=== PATIENT | female | born 1940 | race Caucasian/White ===

== ENCOUNTER → 2017-01-14 | Outpatient (CLI) | payer MEDICARE, BC ==
[~2017-01-14] MED LIST: ASPIRIN PO; AUGMENTIN PO; SYNTHROID PO; ZOLOFT PO
--- NOTE | ~2017-01-14 | MY11 ---
[facility] A Service of [facility] & [facility] RADIOLOGY TEXT RESULTS PATIENT: MARZENA RUIZ LOCATION: [facility] : 38 UNIT #: [id number] AGE: [address]: Vicenta Cullen MD SEX: F ORDER DR: [id number] [address] [address] [id number] O MR#: [id number] Acc #: [id number] NAME: MARZENA RUIZ : 1940 SEX: F STUDY DATE/TIME: 01/14/2017 11:07 UNIT: [facility] ROOM: STUDY DESCRIPTION: MY Mammogram Screening Dig Ravindra Attending Physician: Vicenta Cullen M.D. Referring Physician: Vicenta Cullen M.D. Ordering Physician: Vicenta Cullen M.D. Primary Care Physician: Lindsey Hay A.P.R.N. MEDICAL IMAGING REPORT This report is preliminary unless electronic signature is present. EXAM Digital screening mammogram, 01/14/2017, [facility]. HISTORY 76-year-old woman; strong family history, 2 sisters postmenopausal. Annual screening. COMPARISON Comparison mammograms date to 08/15/2006, with most recent screening comparison 01/12/2016. FINDINGS Digital imaging of each breast was completed utilizing screening protocol. Review includes FDA-approved CAD device. Breast parenchyma remains somewhat dense with a heterogeneous pattern. Subareolar duct prominence is again noted in each breast. There is a small focal area of stellate distortion projecting upper hemisphere right breast middle third and visible on the MLO projection only. I expect this is a summation artifact. However, additional right breast imaging is recommended. This would include a true lateral projection and high-resolution spot compression views. Exaggerated craniocaudal view should be performed, as well. Targeted ultrasound would be completed if indicated at the time. Benign parenchymal pattern in the left breast is stable. IMPRESSION Incomplete mammographic evaluation. Additional right breast imaging recommended. See complete report with recommendations. Patients over the age of 40 are entered into a reminder system with target due date for the next mammogram. A result letter will also be sent to the [facility] A Service of [facility] & [facility] RADIOLOGY TEXT RESULTS PATIENT: MARZENA RUIZ LOCATION: [facility] : 38 UNIT #: [id number] AGE: [address]: Vicenta Cullen MD SEX: F ORDER DR: patient. BIRADS: 0 Incomplete; need additional imaging evaluation and/or prior mammograms for comparison. STAT * RESULT Dictated by... Moises Juarez M.D. THIS IS AN ELECTRONICALLY VERIFIED REPORT Moises Juarez M.D. at 01/14/2017 12:45 PM Maria Esther TD: 01/14/2017 11:27 JOB #: [id number] MEDICAL IMAGING REPORT Page 1 of 1
== END | disposition home or self-care (01) ==
LOC: SMAM 10:17
DX: Z12.31 Encounter for screening mammogram for malignant neoplasm of breast (principal); Z80.3 Family history of malignant neoplasm of breast
CPT/HCPCS: G0202

== ENCOUNTER → 2017-01-24 | Outpatient (CLI) | payer MEDICARE, BC ==
--- NOTE | ~2017-01-24 | MY25 ---
[facility] A Service of [facility] RADIOLOGY TEXT RESULTS PATIENT: MARZENA RUIZ LOCATION: [facility] : 38 UNIT #: [id number] AGE: [address]: Vicenta Cullen MD SEX: F ORDER DR: [id number] [facility] [address] [place], [place] [address] [id number] O MR#: [id number] Acc #: [id number] NAME: MARZENA RUIZ : 1940 SEX: F STUDY DATE/TIME: 01/24/2017 12:38 UNIT: [facility] ROOM: STUDY DESCRIPTION: VIJAYA KARINA RANDOLPHTiffanie W/ CAD UNI RT Attending Physician: Vicenta Cullen M.D. Referring Physician: Vicenta Cullen M.D. Ordering Physician: Vicenta Cullen M.D. Primary Care Physician: Lindsey Hay A.P.R.N. MEDICAL IMAGING REPORT This report is preliminary unless electronic signature is present EXAM Right digital diagnostic mammogram INDICATIONS Asymmetry in the right breast on screening mammogram PROCEDURE True lateral view of the right breast. Spot compression view right breast MLO projection and rolled medial and lateral views in the CC projection. All images obtained on digital mammography unit. FDA approved CAD device utilized. COMPARISON 01/14/2017 FINDINGS Scattered fibroglandular density. Suspected asymmetry in the upper half of the right breast on the screening mammogram does not persist on spot compression. There is no persistent mass or suspicious calcification. IMPRESSION Negative right digital diagnostic mammogram. Recommend patient continue with yearly screening. Patients over the age of 40 are entered into a reminder system with target due date for the next mammogram. A result letter will also be sent to the patient. BIRADS: 1 - Negative Dictated by... Sinan Jose M.D. [facility] A Service [facility] RADIOLOGY TEXT RESULTS PATIENT: MARZENA RUIZ LOCATION: [facility] : 38 UNIT #: [id number] AGE: [address]: Vicenta Cullen MD SEX: F ORDER DR: THIS IS AN ELECTRONICALLY VERIFIED REPORT Sinan Jose M.D. at 01/25/2017 7:11 AM Izabela TD: 01/24/2017 16:54 JOB #: [id number] MEDICAL IMAGING REPORT Page 1 of 1 COPY
== END | disposition home or self-care (01) ==
LOC: CMAM 12:15
DX: R92.8 Other abnormal and inconclusive findings on diagnostic imaging of breast (principal)
CPT/HCPCS: G0206

== ENCOUNTER → 2017-02-10 | Outpatient (CLI) | payer MEDICARE, BC ==
--- NOTE | ~2017-02-10 | NM22 ---
[facility] A Service of [facility] RADIOLOGY TEXT RESULTS PATIENT: MARZENA RUIZ LOCATION: [facility] : 38 UNIT #: [id number] AGE: [address]: Vicenta Cullen MD SEX: F ORDER DR: [id number] [facility] [address] [place], [place] [address] [id number] O MR#: [id number] Acc #: [id number] NAME: MARZENA RUIZ : 1940 SEX: F STUDY DATE/TIME: 02/10/2017 13:59 UNIT: CN ROOM: STUDY DESCRIPTION: [place] Hepatobiliary W GB Pharm Attending Physician: Vicenta Cullen M.D. Referring Physician: Vicenta Cullen M.D. Ordering Physician: Vicenta Cullen M.D. Primary Care Physician: Vicenta Cullen M.D. MEDICAL IMAGING REPORT This report is preliminary unless electronic signature is present EXAM Hepatobiliary scan. INDICATIONS Right upper quadrant abdominal pain since November 2016, but worse over the past 2 weeks. PROCEDURE Patient administered 5.65 mCi technetium labeled Choletec. Imaging of the upper abdomen was performed for 60 minutes, then patient was administered 1.3 mcg of Kinevac IV per protocol. COMPARISON None. FINDINGS Liver shows symmetric extraction and excretion of radiotracer. Gallbladder fills by 30 minutes. Ejection fraction is 86.1% at 30 minutes. IMPRESSION Normal study. Dictated by... Sinan Jose M.D. THIS IS AN ELECTRONICALLY VERIFIED REPORT Sinan Jose M.D. at 02/11/2017 3:29 PM ALEXIS/ken TD: 02/10/2017 18:07 JOB #: [id number] [facility] A Service [facility] RADIOLOGY TEXT RESULTS PATIENT: MARZENA RUIZ LOCATION: [facility] : 38 UNIT #: [id number] AGE: [address]: Vicenta Cullen MD SEX: F ORDER DR: MEDICAL IMAGING REPORT Page 1 of 1 COPY
== END | disposition home or self-care (01) ==
LOC: CNUC 13:27
DX: R10.11 Right upper quadrant pain (principal)
CPT/HCPCS: 78227; A9537; J2805

== ENCOUNTER → 2017-02-19 | Outpatient (CLI) | payer MEDICARE, BC ==
--- NOTE | ~2017-02-19 | CT55 ---
[facility] A Service of [facility] & [facility] RADIOLOGY TEXT RESULTS PATIENT: MARZENA RUIZ LOCATION: [facility] : 38 UNIT #: [id number] AGE: [address]: Vicenta Cullen MD SEX: F ORDER DR: [id number] [facility] [address] [place], [place] [address] [id number] O MR#: [id number] Acc #: [id number] NAME: MARZENA RUIZ : 1940 SEX: F STUDY DATE/TIME: 02/19/2017 13:02 UNIT: [facility] ROOM: STUDY DESCRIPTION: CT Chest W Con Attending Physician: Vicenta Cullen M.D. Referring Physician: Vicenta Cullen M.D. Ordering Physician: Vicenta Cullen M.D. Primary Care Physician: Vicenta Cullen M.D. MEDICAL IMAGING REPORT This report is preliminary unless electronic signature is present EXAM CT chest INDICATION Right chest wall pain. Shortness of air. 2-month duration. TECHNIQUE CT of the chest utilizing 70 mL Isovue-370 IV contrast. Coronal and sagittal reconstructions were obtained. This CT exam was performed with one or more of the following radiation dose reduction techniques: Automatic exposure control, adjustment of mA and/or kV according to patient size, and iterative reconstruction. COMPARISON CT chest 08/07/2012. FINDINGS There is mild emphysema in both lungs. No focal consolidation. There are a few benign calcified granulomas. An area of presumed scarring in the posterior aspect the left upper lobe measures up to 1.8 cm, however this is not significant change from 2013 and is consistent with a benign area of scarring. No pathologically enlarged hilar lymph nodes. There are an increased number of small posterior mediastinal nodes associated within the lower hemithorax. These are near the T10 and T11 vertebra. An index nodule left of the aorta measures 0.9 cm in short axis. A right periaortic lymph node measures 0.9 cm in short axis. The thoracic aorta is normal in caliber. No pericardial or pleural effusion. No acute osseous abnormalities. IMPRESSION [facility] A Service of [facility] & [facility] RADIOLOGY TEXT RESULTS PATIENT: MARZENA RUIZ [facility] UNIT #: [id number] AGE: [address]: Vicenta Cullen MD SEX: F ORDER DR: 1. No acute findings to account for the patient's symptoms. 2. Borderline enlarged posterior mediastinal lymph nodes in the lower thorax. Given their borderline size, I would recommend a precautionary follow up study in 6 months to ensure a benign etiology. 3. Area of parenchymal scarring in the left upper lobe near the apex is unchanged from at least 08/07/2012 consistent with benign scar tissue. Dictated by... True Renteria M.D. THIS IS AN ELECTRONICALLY VERIFIED REPORT True Renteria M.D. at 02/21/2017 12:59 PM ERICKA/talia TD: 02/21/2017 10:00 JOB #: [id number] MEDICAL IMAGING REPORT Page 1 of 1 COPY
[2017-02-19 13:10] LABS: POC - CREATININE 0.71 mg/dL (0.44-1.03); POC - GFR >60.0 mL/min (>60)
== END | disposition home or self-care (01) ==
LOC: CCAT 12:29
PROVIDERS: Family Medicine
DX: R07.89 Other chest pain (principal); R59.0 Localized enlarged lymph nodes; J98.4 Other disorders of lung
CPT/HCPCS: 71260; 82565; Q9967